=== PATIENT | female | born 1935 | race Caucasian/White ===

== ENCOUNTER 2020-03-03 15:32 | Inpatient (IN) | payer OTHER ==
[~2020-03-03] VITALS: Ht 152.4 cm; Wt 52.2 kg
[2020-03-03 16:28] LABS: BASOPHILS ABSOLUTE AUTO 0.06 K/mm3 (0.00-0.23); BASOPHILS PERCENT AUTO 1 % (0-2); EOSINOPHILS ABSOLUTE AUTO 0.12 K/mm3 (0.00-0.68); EOSINOPHILS PERCENT AUTO 1 % (0-6); Hematocrit 45.2 % (33.0-51.0); Hemoglobin 15.8 g/dL (11.5-16.0); IMMATURE GRAN ABSOLUTE AUTO 0.06 K/mm3 (0.00-0.10); IMMATURE GRAN PERCENT AUTO 1 % (0-1); LYMPHOCYTES ABSOLUTE AUTO 1.62 K/mm3 (0.84-5.20); LYMPHOCYTES PERCENT AUTO 15 % (21-46); MONOCYTES PERCENT AUTO 16 % (4-13); Mean Corpuscular HGB 29.9 pg (26.0-34.0); Mean Corpuscular Volume 86 fL (80-100); Mean Platelet Volume 9.7 fL (9.1-12.4); NEUTROPHILS ABSOLUTE AUTO 7.31 K/mm3 (1.96-9.15); NEUTROPHILS PERCENT AUTO 67 % (41-73); Platelet Count 428 K/mm3 (150-400); RDW Coefficient Variation 11.8 % (11.7-14.2); RDW Standard Deviation 37.2 fL (35.1-46.3); Red Blood Cell Count 5.28 M/mm3 (3.80-5.20); White Blood Cell Count 10.87 K/mm3 (4.00-11.30)
[2020-03-03 16:48] LABS: Alanine Aminotransfer (ALT/SGP 20 U/L (12-78); Albumin, Blood 3.1 g/dL (3.4-5.0); Albumin/Globulin Ratio 0.7 (0.8-1.8); Alk Phos 90 U/L (50-136); Anion Gap 10 mmol/L (6-16); Aspartate Aminotrans (AST/SGOT 23 U/L (12-37); Bilirubin, Total 0.7 mg/dL (0.1-1.0); Blood Urea Nitrogen 19 mg/dL (8-24); Bun/Creatinine Ratio 23.5 (12.0-20.0); CO2, Blood 31 mmol/L (21-32); Calcium, Blood 10.3 mg/dL (8.5-10.1); Chloride, Blood 80 mmol/L (98-108); Creatinine, Blood 0.81 mg/dL (0.40-1.00); Globulin, Blood 4.5 g/dL (2.2-4.0); Glomerular Filtration Rate >60 (60-); Glucose, Blood 87 mg/dL (70-99); Sodium, Blood 121 mmol/L (136-145); Total Protein, Blood 7.6 g/dL (6.4-8.2)
[2020-03-03] MEDS ORDERED: EUTHYROX50 MCG PO (19:16)
[2020-03-03] MEDS ORDERED: Prinivil10 MG PO (19:16)
[2020-03-03] MEDS ORDERED: Simvastatin40 MG PO (19:17)
[2020-03-03] MEDS ORDERED: METO100ER PO (19:17)
[2020-03-03] MEDS ORDERED: Monodox100 MG PO (19:44)
[2020-03-03] MEDS ORDERED: AMLODIPINE BES2.5 MG PO (19:48)
[2020-03-03] MEDS ORDERED: LISINOPRIL-HCT1 EAC1 PO (21:00)
[2020-03-03] MEDS ORDERED: Aspir 8181 MG PO (21:00)
[2020-03-03 22:06] LABS: Influenza A, PCR Negative (NEGATIVE); Influenza B, PCR Negative (NEGATIVE); Resp Syncytial Virus, PCR Negative (NEGATIVE); SARS-Cov-2 (COVID-19) PCR, MMC Negative (NEGATIVE)
[2020-03-03] MEDS ORDERED: AMLO5 PO (22:39)
[2020-03-03] MEDS ORDERED: Doxycycline Mo100 M1 PO (22:41)
--- NOTE | 2020-03-04 00:10 | NUR ---
03/03/20 2302 PT ARRIVED TO ROOM FROM ER VIA GURNEY IN STABLE CONDITION. DENIES ANY DISCOMFORT AT THIS TIME. TELE IS AFIB AT 67 PER TELE MONTITOR TECH. NO OTHER APPARENT SIGNS OF DISTRESS AT THIS TIME. CALL LIGHT IS IN REACH.
[2020-03-04 01:00] LABS: Source, Urine Clean Catch
[2020-03-04 01:03] LABS: Appearance, Urine Clear (Clear); Bilirubin, Urine Neg (Neg); Blood, Urine Neg (Neg); Color, Urine Yellow (P-Yellow); Glucose Qualitative, Urine Neg (Neg); Ketones, Urine Neg (Neg); Leukocyte Esterase, Urine Neg (Neg); Nitrite, Urine Neg (Neg); Protein, Urine 1+ (Neg); Urobilinogen, Urine NORM (Normal); pH, Urine 6.5 (5.0-8.0)
--- NOTE | 2020-03-04 03:25 | NUR ---
0238 PT LYING IN BED, EYES CLOSED, APPEARS TO BE RESTING. WAKES EASILY TO VERBAL STIMULI. NO APPARENT SIGNS OF DISTRESS. CALL LIGHT IS IN REACH.
--- NOTE | 2020-03-04 04:56 | NUR ---
PT UP USING THE BATHROOM WITH MALL MANAGER ASSISTING. PT HAVING DIARRHEA, PT REPORTS THIS IS HER FIRST EPISODE OF IT. NO OTHER APPARENT SIGNS OF DISTRESS. CALL LIGHT IS IN REACH.
--- NOTE | 2020-03-04 04:56 | NUR ---
PT IS AAO X 4, ON RA. TELE AFIB. PT HAD 1 EPISODE OF DIARRHEA ABOUT 0457.
[2020-03-04 05:00] LABS: BASOPHILS ABSOLUTE AUTO 0.07 K/mm3 (0.00-0.23); BASOPHILS PERCENT AUTO 1 % (0-2); EOSINOPHILS ABSOLUTE AUTO 0.14 K/mm3 (0.00-0.68); EOSINOPHILS PERCENT AUTO 1 % (0-6); Hematocrit 40.2 % (33.0-51.0); Hemoglobin 13.8 g/dL (11.5-16.0); IMMATURE GRAN ABSOLUTE AUTO 0.07 K/mm3 (0.00-0.10); IMMATURE GRAN PERCENT AUTO 1 % (0-1); LYMPHOCYTES PERCENT AUTO 17 % (21-46); MONOCYTES ABSOLUTE AUTO 1.79 K/mm3 (0.16-1.47); MONOCYTES PERCENT AUTO 16 % (4-13); Mean Corpuscular HGB 29.7 pg (26.0-34.0); Mean Corpuscular HGB Conc 34.3 g/dL (31.5-36.5); Mean Corpuscular Volume 87 fL (80-100); NEUTROPHILS ABSOLUTE AUTO 7.04 K/mm3 (1.96-9.15); NEUTROPHILS PERCENT AUTO 64 % (41-73); Platelet Count 342 K/mm3 (150-400); RDW Coefficient Variation 11.8 % (11.7-14.2); RDW Standard Deviation 37.5 fL (35.1-46.3); Red Blood Cell Count 4.65 M/mm3 (3.80-5.20); White Blood Cell Count 11.01 K/mm3 (4.00-11.30)
[2020-03-04 05:21] LABS: Alanine Aminotransfer (ALT/SGP 16 U/L (12-78); Albumin, Blood 2.4 g/dL (3.4-5.0); Albumin/Globulin Ratio 0.7 (0.8-1.8); Alk Phos 64 U/L (50-136); Anion Gap 10 mmol/L (6-16); Aspartate Aminotrans (AST/SGOT 19 U/L (12-37); Bilirubin, Total 0.8 mg/dL (0.1-1.0); Blood Urea Nitrogen 15 mg/dL (8-24); Bun/Creatinine Ratio 24.6 (12.0-20.0); CO2, Blood 25 mmol/L (21-32); Calcium, Blood 9.2 mg/dL (8.5-10.1); Chloride, Blood 89 mmol/L (98-108); Creatinine, Blood 0.61 mg/dL (0.40-1.00); Globulin, Blood 3.5 g/dL (2.2-4.0); Glomerular Filtration Rate >60 (60-); Glucose, Blood 89 mg/dL (70-99); Potassium, Blood 3.5 mmol/L (3.5-5.5); Sodium, Blood 124 mmol/L (136-145); Total Protein, Blood 5.9 g/dL (6.4-8.2)
--- NOTE | 2020-03-04 06:12 | NUR ---
PT LYING IN BED, AWAKE, DENIES NEED FOR ANYTHIG AT THIS TIME, NO APPARENT SIGNS OF DISTRESS. CALL LIGHT IS IN REACH. NO OTHER CHANGES THIS SHIFT.
--- NOTE | 2020-03-04 09:46 | NUR ---
PER ORDER DUONEB Q 6 HRS PRN AND CJANGE FLUIDS TO 50ML/HR. STRICT I&O
[2020-03-04 13:57] LABS: Anion Gap 6 mmol/L (6-16); Blood Urea Nitrogen 15 mg/dL (8-24); Bun/Creatinine Ratio 20.1 (12.0-20.0); CO2, Blood 29 mmol/L (21-32); Calcium, Blood 9.3 mg/dL (8.5-10.1); Chloride, Blood 89 mmol/L (98-108); Creatinine, Blood 0.75 mg/dL (0.40-1.00); Glomerular Filtration Rate >60 (60-); Glucose, Blood 113 mg/dL (70-99); Potassium, Blood 3.6 mmol/L (3.5-5.5); Sodium, Blood 124 mmol/L (136-145)
--- NOTE | 2020-03-04 16:15 | NUR ---
ALERT. ORIENTED. [place]. ONE ASSIST TO BATHROOM DUE TO IV LINES. DENIES ANY DISCOMFORT. DAUGHTER HAS BEEN IN TO ASSIST AND TO DISCUSS CONDITION WITH HOSPITALIST PER PATIENT "DOES NOT UNDERSTAND WHAT THE DOCTOR IS SAYING." UNLABORED RESPIRATIONS. TELE ON. IV PATENT AND RUNNING AT 50ML/HR. NO STOOL SAMPLE OBTAINED PATIENT HAS NOT HAD TO HAVE B.M. WCTM
--- NOTE | 2020-03-04 21:50 | NUR ---
ADMIT: 03/03/20 DISCHARGE: DX: hyponatremia CC: cpeabody ASTON CALL: RESIDENCE: home CAREGIVER: Emergency contact : Kira Castañeda, Child, DX: hearing loss, htn, hyponatremia, smoker, see list. DME: no record CCM: no record HOME HEALTH: no record SUMMARY: admit 03/03/20 03/04/[address] Morataya, Iv fluids for hyponatremia, Nebs for wheeze. ETA discharge home with daughter . cp referred by her primary care provider hanane due to low sodium and low potassium. There was concern about confusion, although the patient does not appear confused at this point. ASSESSMENT: 1. An 84 years old female, referred here hanane for hyponatremia of unclear etiology.
[2020-03-05 05:30] LABS: Anion Gap 9 mmol/L (6-16); Blood Urea Nitrogen 16 mg/dL (8-24); Bun/Creatinine Ratio 23.1 (12.0-20.0); CO2, Blood 27 mmol/L (21-32); Calcium, Blood 9.2 mg/dL (8.5-10.1); Chloride, Blood 91 mmol/L (98-108); Creatinine, Blood 0.69 mg/dL (0.40-1.00); Glomerular Filtration Rate >60 (60-); Glucose, Blood 93 mg/dL (70-99); Potassium, Blood 3.3 mmol/L (3.5-5.5); Sodium, Blood 127 mmol/L (136-145)
--- NOTE | 2020-03-05 05:55 | NUR ---
[employer] SUMMARY PT A/O WITH FORGETFULNESS. DAUGHTER AT BEDSIDE. SLEPT WELL TONIGHT. A. FIB IN THE 70'S PER HVAC SERVICE TECHNICIAN. ROOM AIR WITH NO SOB NOTED. VSS. DENIED PAIN. BED ALARM IN PLACE, CALL LIGHT WITHIN REACH. NO ACUTE CHANGES.
--- NOTE | 2020-03-05 11:36 | NUR ---
ADMIT: 03/03/20 DISCHARGE: 03/04/20 DX: hyponatremia CC: cpeabody ASTON CALL: Met with Colleen and daughter Kira, call Kira for aston RESIDENCE: home with daughter CAREGIVER: Emergency contact : Kira Castañeda, Child, DX: hearing loss, htn, hyponatremia, smoker, see list. DME: none in home Stairs- 1 step into home CCM: no record HOME HEALTH: not home bound SUMMARY: admit 03/03/20 03/05/20 Discharge home with arlet esquivel care at home: Good insurance coverage for meds and medical 1 step into home provides her own self care but lives with family Still drives herself [facility] Discussed transition of care call from [facility] within 48 hours of discharge to follow up on condition and schedule 1 week follow up appointment. cp 03/04/[address] Morataya, Iv fluids for hyponatremia, Nebs for wheeze. ETA discharge home with daughter . cp referred by her primary care provider hanane due to low sodium and low potassium. There was concern about confusion, although the patient does not appear confused at this point. ASSESSMENT: 1. An 84 years old female, referred here hanane for hyponatremia of unclear etiology. 2. This could possibly be related to her increased free fluid intake and alcohol intake.
--- NOTE | 2020-03-05 12:50 | NUR ---
DISCHARGE PT DISCHARGED AT 1250. PT & HER DAUGHTER EDUCATED ON DC INSTRUCTIONS & FOLLOW UP APPOINTMENTS. CHANGES TO MEDICATIONS GONE OVER PRIOR TO DC. BOTH DENY NEED FOR FURTHER INSTRUCTION. PT WHEELED OUT BY AIDE & DRIVEN HOME BY DAUGHTER. NO CHANGES IN ASSESSMENT PRIOR TO DC.
== END 2020-03-05 12:50 | disposition home or self-care (01) | DRG 641 ==
LOC: ER 15:32 → MEDS 15:33
PROVIDERS: Emergency Medicine; Family Medicine; Physician Assistant; ADMIT Internal Medicine
DX: E87.1 Hypo-osmolality and hyponatremia (principal); F17.210 Nicotine dependence, cigarettes, uncomplicated; I10 Essential (primary) hypertension; I51.7 Cardiomegaly; R91.8 Other nonspecific abnormal finding of lung field; R05 Cough; J44.9 Chronic obstructive pulmonary disease, unspecified; I70.0 Atherosclerosis of aorta; Z20.822 Contact with and (suspected) exposure to COVID-19; E03.9 Hypothyroidism, unspecified; Z79.82 Long term (current) use of aspirin; E87.6 Hypokalemia; E83.52 Hypercalcemia; Z66 Do not resuscitate
CPT/HCPCS: 0241U; 36415; 71046; 80048; 80053; 83605; 83735; 83880; 84439; 84443; 84484; 85025; 87040; 93005; 93010; 94640; 94760; 96372; 99284-25; A9270; G0378; J1650; J7030